=== PATIENT | male | born 1950 | race American Indian/Alaskan Native ===

== ENCOUNTER 2021-06-26 11:18 | Outpatient (REF) | payer MEDICARE, SELFPAY ==
[2021-06-26 11:46] LABS: MANUAL DIFF FLAG NO
[2021-06-26 12:16] LABS: Basophils Absolute Auto 0.1 X10*3/uL (0.0-0.2); Basophils Percent Auto 0.7 % (0-2); Eosinophils Absolute Auto 0.2 X10*3/uL (0.0-0.4); Eosinophils Percent Auto 2.6 % (0-4); Hematocrit 38.9 % (42.0-52.0); Hemoglobin 12.6 g/dl (14.0-18.0); Imm Gran Abs Auto 0.03 X10*3/uL (0.00-0.03); Imm Gran Pct Auto 0.4 % (0.0-0.4); Lymphocytes Absolute Auto 2.6 X10*3/uL (1.2-4.9); Lymphocytes Percent Auto 32.3 % (20-40); Mean Corpuscular HGB Conc 32.4 g/dl (31.0-36.0); Mean Corpuscular Hemoglobin 28.1 pg (27.0-33.0); Mean Corpuscular Volume 86.8 fL (80.0-98.0); Mean Platelet Volume 10.6 fL (9.4-12.4); Monocytes Absolute Auto 0.8 X10*3/uL (0.1-1.2); Monocytes Percent Auto 10.4 % (2-11); Neutrophils Absolute Auto 4.3 x10*3/uL (2.0-8.3); Neutrophils Percent Auto 53.6 % (45-73); Platelet Count 169 X10*3/uL (160-400); Red Blood Count 4.48 X10*6/uL (4.60-5.80); Red Cell Distribution Width 13.5 % (11.0-16.0); White Blood Count 8.1 X10*3/uL (4.8-10.8)
[2021-06-26 12:37] LABS: Alanine Aminotransferase 47 U/L (0-40); Albumin Level 4.4 g/dL (3.5-5.0); Alkaline Phosphatase 198 U/L (39-117); Anion Gap 13 (12-20); Aspartate Amino Transferase 51 U/L (5-37); Bilirubin Total 0.5 mg/dL (0.0-1.0); Blood Urea Nitrogen 31 mg/dL (9-16); Calcium 8.9 mg/dL (8.4-10.2); Carbon Dioxide 23 mmol/L (22-29); Chloride 104 mmol/L (96-108); Cholesterol 182 mg/dL; Estimated Glomerular Filt Rate 55; Glucose Random 172 mg/dL (60-115); HDL Cholesterol 53 mg/dL; LDL Cholesterol Calculated 90 mg/dl; Potassium 4.8 mmol/L (3.3-5.1); Sodium 135 mmol/L (135-145); Triglycerides 199 mg/dL
[2021-06-26 12:50] LABS: Creatinine Urine 82.09 mg/dL; Microalbum/Creatinine Ratio Ur 116.9 ug/mg cr
[2021-06-26 12:59] LABS: Thyroid Stimulating Hormone 1.52 uIU/mL (0.32-4.0)
== END 2021-06-26 11:19 | disposition home or self-care (01) ==
LOC: HO.LAB 11:18
PROVIDERS: PCP Internal Medicine; Visit Provider Internal Medicine
DX: E11.65 Type 2 diabetes mellitus with hyperglycemia (principal); E78.00 Pure hypercholesterolemia, unspecified; I10 Essential (primary) hypertension; F10.19 Alcohol abuse with unspecified alcohol-induced disorder; Z72.0 Tobacco use; Z91.19 Patient's noncompliance with other medical treatment and regimen
CPT/HCPCS: 36415; 80053; 80061; 82043; 84443; 85025

== ENCOUNTER 2023-12-05 08:19 | Outpatient (REF) | payer MEDICARE, SELFPAY ==
[2023-12-05 08:59] LABS: MANUAL DIFF FLAG NO
[2023-12-05 09:48] LABS: Basophils Absolute Auto 0.1 X10*3/uL (0.0-0.2); Basophils Percent Auto 0.7 % (0-2); Eosinophils Absolute Auto 0.1 X10*3/uL (0.0-0.4); Hematocrit 37.3 % (42.0-52.0); Hemoglobin 12.6 g/dl (14.0-18.0); Imm Gran Abs Auto 0.02 X10*3/uL (0.00-0.03); Imm Gran Pct Auto 0.3 % (0.0-0.4); Lymphocytes Absolute Auto 2.3 X10*3/uL (1.2-4.9); Lymphocytes Percent Auto 32.2 % (20-40); Mean Corpuscular HGB Conc 33.8 g/dl (31.0-36.0); Mean Corpuscular Hemoglobin 29.3 pg (27.0-33.0); Mean Corpuscular Volume 86.7 fL (80.0-98.0); Monocytes Absolute Auto 0.7 X10*3/uL (0.1-1.2); Neutrophils Absolute Auto 3.8 x10*3/uL (2.0-8.3); Neutrophils Percent Auto 54.8 % (45-73); Platelet Count 131 X10*3/uL (160-400); Red Cell Distribution Width 12.9 % (11.0-16.0)
[2023-12-05 09:50] LABS: Estimated Average Glucose 226 mg/dL; Hemoglobin A1c % 9.5 % (<6.0)
[2023-12-05 10:21] LABS: Microalbum/Creatinine Ratio Ur 154.8 ug/mg cr (<30)
[2023-12-05 10:26] LABS: Alanine Aminotransferase 93 U/L (0-40); Albumin Level 4.4 g/dL (3.5-5.0); Alkaline Phosphatase 199 U/L (39-117); Anion Gap 14 (12-20); Aspartate Amino Transferase 77 U/L (5-37); Bilirubin Total 0.6 mg/dL (0.0-1.0); Blood Urea Nitrogen 24 mg/dL (9-16); Calcium 10.7 mg/dL (8.4-10.2); Carbon Dioxide 30 mmol/L (22-29); Chloride 95 mmol/L (96-108); Cholesterol 189 mg/dL (<200); Estimated Glomerular Filt Rate 53; Glucose Random 356 mg/dL (60-115); HDL Cholesterol 60 mg/dL (>40); LDL Cholesterol Calculated 97 mg/dL (<100); Potassium 4.5 mmol/L (3.3-5.1); Sodium 134 mmol/L (135-145); Total Protein 7.9 g/dL (6.5-8.0); Triglycerides 160 mg/dL (<150)
[2023-12-05 10:43] LABS: Folate 10.3 ng/mL (> or = 4.0); Vitamin B12 1455 pg/mL (200-900)
== END 2023-12-05 08:20 | disposition home or self-care (01) ==
LOC: HO.LAB 08:19
PROVIDERS: PCP Internal Medicine; Visit Provider Internal Medicine
DX: E11.65 Type 2 diabetes mellitus with hyperglycemia (principal); E78.00 Pure hypercholesterolemia, unspecified; F10.19 Alcohol abuse with unspecified alcohol-induced disorder; I10 Essential (primary) hypertension; Z72.0 Tobacco use
CPT/HCPCS: 36415; 80053; 80061; 82043; 82570; 82607; 82746; 83036; 85025

== ENCOUNTER 2024-01-30 08:14 | Outpatient (REF) | payer MEDICARE, SELFPAY ==
[2024-01-30 09:29] LABS: Estimated Average Glucose 212 mg/dL
[2024-01-30 09:54] LABS: Parathyroid Hormone Intact 102.2 pg/mL (8.7-77.1)
[2024-01-30 09:56] LABS: Alanine Aminotransferase 26 U/L (0-40); Albumin Level 4.3 g/dL (3.5-5.0); Alkaline Phosphatase 167 U/L (39-117); Anion Gap 15 (12-20); Aspartate Amino Transferase 34 U/L (5-37); Bilirubin Total 0.5 mg/dL (0.0-1.0); Blood Urea Nitrogen 21 mg/dL (9-16); Calcium 9.4 mg/dL (8.4-10.2); Carbon Dioxide 22 mmol/L (22-29); Chloride 106 mmol/L (96-108); Estimated Glomerular Filt Rate > 60; Glucose Random 152 mg/dL (60-115); Phosphorus 3.4 mg/dL (2.7-4.5); Potassium 4.8 mmol/L (3.3-5.1); Sodium 138 mmol/L (135-145); Total Protein 7.9 g/dL (6.5-8.0)
== END 2024-01-30 08:15 | disposition home or self-care (01) ==
LOC: HO.LAB 08:14
PROVIDERS: PCP Internal Medicine; Visit Provider Internal Medicine
DX: E11.65 Type 2 diabetes mellitus with hyperglycemia (principal); E78.00 Pure hypercholesterolemia, unspecified; E83.52 Hypercalcemia; I10 Essential (primary) hypertension; R74.01 Elevation of levels of liver transaminase levels
CPT/HCPCS: 36415; 80053; 83036; 83970; 84100

== ENCOUNTER 2024-05-06 08:37 | Outpatient (REF) | payer MEDICARE, SELFPAY ==
[2024-05-06 09:25] LABS: Estimated Average Glucose 266 mg/dL; Hemoglobin A1C 332.1109 umol/L; Hemoglobin A1c % 10.9 % (<6.0); Total Hemoglobin (HGBA1C) 3453.7505 umol/L
[2024-05-06 09:53] LABS: Alanine Aminotransferase 19 U/L (0-40); Albumin Level 3.9 g/dL (3.5-5.0); Alkaline Phosphatase 179 U/L (39-117); Anion Gap 13 (12-20); Aspartate Amino Transferase 31 U/L (5-37); Bilirubin Total 0.6 mg/dL (0.0-1.0); Blood Urea Nitrogen 18 mg/dL (9-16); Carbon Dioxide 26 mmol/L (22-29); Chloride 98 mmol/L (96-108); Estimated Glomerular Filt Rate 47; Glucose Random 318 mg/dL (60-115); Potassium 4.1 mmol/L (3.3-5.1); Sodium 133 mmol/L (135-145); Total Protein 8.3 g/dL (6.5-8.0)
[2024-05-06 09:57] LABS: Vitamin D 25-OH Total 16.3 ng/mL (>30)
== END 2024-05-06 08:38 | disposition home or self-care (01) ==
LOC: HO.LAB 08:37
PROVIDERS: PCP Internal Medicine; Visit Provider Internal Medicine
DX: E11.65 Type 2 diabetes mellitus with hyperglycemia (principal); E21.2 Other hyperparathyroidism; I10 Essential (primary) hypertension; R74.01 Elevation of levels of liver transaminase levels
CPT/HCPCS: 36415; 80053; 82306; 83036

== ENCOUNTER 2024-09-15 15:21 | Outpatient (REF) | payer OTHER, SELFPAY ==
[2024-09-15 16:01] LABS: Estimated Average Glucose 194 mg/dL; Hemoglobin A1c % 8.4 % (<6.0)
[2024-09-15 16:20] LABS: Creatinine Urine 35.28 mg/dL; Microalbum/Creatinine Ratio Ur 150.2 ug/mg cr (<30)
[2024-09-15 16:25] LABS: Alanine Aminotransferase 71 U/L (0-40); Albumin Level 4.6 g/dL (3.5-5.0); Alkaline Phosphatase 190 U/L (39-117); Anion Gap 14 (12-20); Aspartate Amino Transferase 61 U/L (5-37); Bilirubin Total 0.3 mg/dL (0.0-1.0); Blood Urea Nitrogen 37 mg/dL (9-16); Calcium 9.9 mg/dL (8.4-10.2); Carbon Dioxide 22 mmol/L (22-29); Chloride 107 mmol/L (96-108); Cholesterol 203 mg/dL (<200); Estimated Glomerular Filt Rate 46; Glucose Random 294 mg/dL (60-115); HDL Cholesterol 52 mg/dL (>40); LDL Cholesterol Calculated 100 mg/dL (<100); Potassium 5.3 mmol/L (3.3-5.1); Sodium 138 mmol/L (135-145); Total Protein 8.5 g/dL (6.5-8.0); Triglycerides 256 mg/dL (<150)
[2024-09-15 16:42] LABS: Prostate Specific Antigen 1.05 ng/mL (<0.05-4.0)
== END 2024-09-15 15:22 | disposition home or self-care (01) ==
LOC: HO.LAB 15:21
PROVIDERS: Visit Provider Internal Medicine
DX: E11.65 Type 2 diabetes mellitus with hyperglycemia (principal); I10 Essential (primary) hypertension; N18.9 Chronic kidney disease, unspecified; Z12.5 Encounter for screening for malignant neoplasm of prostate
CPT/HCPCS: 36415; 80053; 80061; 82043; 82570; 83036; 84153